=== PATIENT | female | born 1990 | race Two or more races ===

== ENCOUNTER 2016-08-19 06:30 | Inpatient (IN) | payer BC, MEDICAID ==
[~2016-08-19] VITALS: Ht 162.6 cm; Wt 89.0 kg
--- NOTE | ~2016-08-19 | OR ---
PATIENT'S NAME: [facility] AGE: 26 Y [address] 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 Term intrauterine . 2. Artificial rupture of membranes with clear fluid. 3. Epidural anesthesia. POSTOPERATIVE DIAGNOSES: 1. Term intrauterine . 2. Artificial rupture of membranes with clear fluid. 3. Epidural anesthesia. 4. Delivery of viable with weight currently pending with scores of 8 and 9 at 1 and 5 minutes respectively. DESCRIPTION OF PROCEDURE: This 26-year-old, 4, para 3-0-0-3, with a history of macrosomia with weight of 8 pounds 9 ounces, presented to Labor and Delivery in labor. She was kang every 3-5 minutes at home. She was actually on her due date. Upon presentation, she was 4 to 5 cm and progressed well. The patient had an unremarkable , was O negative, antibody screen negative, GBS negative, rubella nonimmune female, who had no other issues with her . She subsequently progressed to complete, 2nd stage of labor only took about 8 minutes to accomplish delivery. The baby delivered from an OA presentation. Head rotated to the maternal right. The shoulders were delivered without difficulty. No significant shoulder dystocia. The baby was placed on maternal abdomen and was bulb suctioned and the cord was doubly clamped and cut by the father. Placenta then took about 10 minutes to deliver, delivered intact with a 3-vessel cord. The placenta was inspected carefully and there were no missing cotyledons present. The cervix going down very nicely and had minimal bleeding with estimated blood loss was 200 mL. Cervix was inspected and found to be intact without focal laceration. There are no periurethral tears and no vaginal sidewall hematomas and no evidence any perineal tears. Both sponge counts and needle counts were correct. Both mom and infant are doing well at this time. PATIENT'S NAME: [facility] AGE: 26 Y [address] ROOM: [id number] [place], [place] [id number] LOCATION: [facility] ADMIT DATE: 08/19/2016 OR/Procedure Report DISCHARGE DATE: FAMILY PHYSICIAN: Vanessa Almeida MD ATTENDING PHYSICIAN: Vanessa Almeida VANESSA ALMEIDA MD TAB/modl /[id number] d: 08/19/16 1532 t: 09/06/16 1637, OPERATIVE SUMMARY
[2016-08-19] MEDS ORDERED: PRENATAL 1+1)(P1 TAB PO (07:22)
[2016-08-19 07:39] LABS: BASOPHIL # 0.1 K/uL (0.0-0.2); BASOPHIL % 0.3 %; EOSINOPHIL % 0.3 %; HEMATOCRIT 35.7 % (33.0-46.0); HEMOGLOBIN 11.6 g/dL (11.0-15.0); IMMATURE GRANULOCYTE # 0.1 K/uL (0.0-0.3); IMMATURE GRANULOCYTE % 0.8 %; LYMPHOCYTE # 2.9 K/uL (0.8-4.0); LYMPHOCYTE % 19.8 %; MCH 26.5 pg (27.0-34.0); MCHC 32.5 gm/dL (32.0-36.5); MCV 81.7 fl (83.0-98.0); MONOCYTE # 0.8 K/uL (0.0-1.0); MONOCYTE % 5.5 %; MPV 10.4 fl (9.4-12.4); NEUTROPHIL # (ANC) 10.5 K/uL (1.8-7.8); NEUTROPHIL % 73.3 %; NRBC % 0 /100WBC (0-0.00); PLATELET COUNT 247 K/uL (150-450); RBC 4.37 M/uL (3.50-5.00); RDW-CV 14.3 % (11.9-14.6); WBC 14.4 K/uL (4.0-11.0)
--- NOTE | 2016-08-19 16:38 | NUR ---
VSS, fundus firm, -1, midline. Small flow. SL removed accidently by patient. Motrin at 1245. Showered, voids.
[2016-08-20 05:04] LABS: BASOPHIL % 0.3 %; EOSINOPHIL # 0.1 K/uL (0.0-0.5); EOSINOPHIL % 0.6 %; HEMOGLOBIN 10.2 g/dL (11.0-15.0); IMMATURE GRANULOCYTE # 0.1 K/uL (0.0-0.3); IMMATURE GRANULOCYTE % 0.6 %; LYMPHOCYTE # 2.5 K/uL (0.8-4.0); LYMPHOCYTE % 20.4 %; MCH 27.2 pg (27.0-34.0); MCHC 32.9 gm/dL (32.0-36.5); MCV 82.7 fl (83.0-98.0); MONOCYTE # 0.9 K/uL (0.0-1.0); MONOCYTE % 6.8 %; NEUTROPHIL # (ANC) 8.9 K/uL (1.8-7.8); NEUTROPHIL % 71.3 %; NRBC % 0 /100WBC (0-0.00); RBC 3.75 M/uL (3.50-5.00); RDW-CV 14.6 % (11.9-14.6); WBC 12.4 K/uL (4.0-11.0)
[2016-08-20 05:06] LABS: PLATELET COUNT 194 K/uL (150-450)
--- NOTE | 2016-08-20 05:43 | NUR ---
Last VS: T:98.4 P:69 R: 16 BP: 136/83 Pain ratin Last pain med: Medicated at: 2030 Effective: YES Breasts: , Nipples: INTACT Fundus: FIRM,MIDLINE ,1 BELOW Lochia: SM, RUBRA Epis/Perineum: INTACT,TENDER , Voiding well: Y Significant event: PT DOING WELL. INDEPENDENT WITH CARES.
[2016-08-20] MEDS ORDERED: MOTRIN800 MG PO (09:55)
== END 2016-08-20 17:10 | disposition disaster alternative care site (69) | DRG 775 ==
LOC: GOBM 06:30 → GOBS 06:39
PROVIDERS: ADMIT Family Medicine
PROC: 10E0XZZ Delivery of Products of Conception, External Approach (ICD-10-PCS; principal; 2016-08-19)
PROC: 10907ZC Drainage of Amniotic Fluid, Therapeutic from Products of Conception, Via Natural or Artificial Opening (ICD-10-PCS; principal; 2016-08-19)
PROC: 3E0234Z Introduction of Serum, Toxoid and Vaccine into Muscle, Percutaneous Approach (ICD-10-PCS; 2016-08-20)
DX: O26.893 Other specified pregnancy related conditions, third trimester (principal); Z37.0 Single live birth; Z67.41 Type O blood, Rh negative; Z3A.40 40 weeks gestation of pregnancy
CPT/HCPCS: J2590; J2791; J3010; J7120